=== PATIENT | female | born 1980 | race Caucasian/White ===

== ENCOUNTER 2019-11-14 08:47 | Outpatient (CLI) | payer BC ==
--- NOTE | 2019-11-14 09:48 | MMO ---
Bilateral MAMMO Bilat Diag [facility]. CLINICAL HISTORY: Patient is 39 years old and is seen for diagnostic exam and lump or thickening in the right breast. The patient has no family history of breast cancer. The patient has no personal history of cancer. VIEWS: The views performed were: bilateral craniocaudal with tomosynthesis; bilateral mediolateral oblique with tomosynthesis; bilateral mediolateral with tomosynthesis; and bilateral exaggerated craniocaudal. FILMS COMPARED: The present examination has been compared to a prior imaging study performed at [facility] on 11/14/2019. This study has been interpreted with the assistance of computer-aided detection. MAMMOGRAM FINDINGS: The breasts are extremely dense, which may lower the sensitivity of mammography. Ultrasound of the palpable findings and bilateral mamographic masses are shown to be cysts. There are no suspicious masses, suspicious calcifications, or new areas of architectural distortion. IMPRESSION: THERE IS NO MAMMOGRAPHIC EVIDENCE OF MALIGNANCY. A ROUTINE FOLLOW-UP MAMMOGRAM IN 1 YEAR IS RECOMMENDED. THE RESULTS OF THIS EXAM WERE SENT TO THE PATIENT. ACR BI-RADS Category 2 - Benign finding MAMMOGRAPHY NOTE: 1. A negative mammogram report should not delay a biopsy if a dominant of clinically suspicious mass is present. 2. Approximately 10% to 15% of breast cancers are not detected by mammography. 3. Adenosis and dense breasts may obscure an underlying neoplasm. Reported by: MIMI MOYER MD Electonically Signed: [id number]
--- NOTE | 2019-11-14 10:54 | ULT ---
RIGHT BREAST ULTRASOUND LEFT BREAST ULTRASOUND: HISTORY: Palpable mass, abnormal mammogram. FINDINGS: The sonographic evaluation of the right breast at the region of palpable concern demonstrates a 2.5 c m cyst. There are multiple other cysts seen at the 12 and 1 o'clock positions. There are 2 large cysts at the 12 o'clock position of the left breast measuring 2.2 x 1.2 x 2.6 cm an d 3.5 x 3.5 x 1.2 cm respectively. The findings on the ultrasound correspond to the mammographic findings from the same date. IMPRESSION: BIRADS category 2 - benign findings. Return to annual mammographic screening.
== END 2019-11-14 08:48 | disposition home or self-care (01) ==
LOC: BICMAMMO 08:47
PROVIDERS: ATTEND Obstetrics & Gynecology
DX: N63.10 Unspecified lump in the right breast, unspecified quadrant (principal)
CPT/HCPCS: 77066; G0279